=== PATIENT | male | born 1980 | race Caucasian/White ===

== ENCOUNTER 2017-07-27 06:42 | Emergency (ER) | payer OTHER ==
[~2017-07-27] VITALS: Ht 162.6 cm; Wt 56.1 kg
[2017-07-27 06:47] VITALS: TEMP 36.6; Ht 162.6 cm; Wt 56.1 kg
[2017-07-27] MEDS ORDERED: PROPARACAINE HCL 0.5% OP SOLN 15 ML BTL ONE (07:03)
[2017-07-27] MEDS ORDERED: CIPROFLOXACIN HCL 0.3% OP SOLN 2.5 ML BTL OP ONE (07:15)
--- NOTE | 2017-07-27 07:17 | EMERGENCY ROOM VISIT NOTE ---
History Report prepared by Scribe: Maira Waters Under the Supervision of: Dr. Antonio Cotton D.O. First contact with patient: 06:59 Chief Complaint: EYE ASSESSMENT Stated Complaint: SOMETHING IN EYE, WORK RELATED History of Present Illness The patient is a 37 year old male who presents to the Emergency Room with complaints of an episode of something getting in his left eye occurring about 4 hours ago. 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 The patient wears safety glasses at work. He tried flushing his eye with water with no relief. He notes some eye irritation but denies any pain. Source of History: patient Onset: 4 hours ago Position: eye (left) Quality: other (something in eye) Timing: other (episode) Modifying Factors (Relieving): other (none) Review of Systems See HPI for pertinent positives & negatives. A total of 6 systems reviewed and were otherwise negative. Past Medical & Surgical Medical Problems: (1) No Known Active Medical Problems Family History Patient reports no known family medical history. Social History Smoking Status: Never Smoker Marital Status: single Occupation Status: employed Current/Historical Medications No Active Prescriptions or Reported Meds Allergies Coded Allergies: Latex1 -Allergic Contact Dermititis (Unverified Allergy, Unknown, , ) Penicillins (Unverified Allergy, Unknown, , 07/27/17) Physical Exam Vital Signs Date Time Temp Pulse Resp B/P (MAP) Pulse Ox O2 Delivery O2 Flow Rate FiO2 07/27/17 06:47 36.6 89 18 154/105 96 Room Air Physical Exam CONSTITUTIONAL/VITAL SIGNS: Reviewed / noted above. GENERAL: Non-toxic in appearance. INTEGUMENTARY: Warm, dry, and [place]. HEAD: Normocephalic. EYES: without scleral icterus or trauma. There is mild scleral injection. There is a visible foreign body to the front of the cornea anterior to the pupil. It is small but visible to the eye. It does not move with blinking. Eyelids were everted and no foreign body was seen under the lids. ENT/OROPHARYNX: clear and moist. LYMPHADENOPATHY/NECK: Is supple without lymphadenopathy or meningismus. RESPIRATORY: Lungs clear and equal. CARDIOVASCULAR: Regular rate and rhythm. GI/ABDOMEN: Soft and nontender. No organomegaly or pulsatile mass. No rebound or guarding. Normal bowel sounds. EXTREMITIES: Warm and well perfused. BACK: No CVA tenderness. NEUROLOGICAL: Intact without focal deficits. PSYCHIATRIC: normal affect. MUSCULOSKELETAL: Normally developed with good muscle tone. Medical Decision & Procedures Medications Administered Medications (Trade) Dose Ordered Sig/Michael Route Start Time Stop Time Status Last Admin Dose Admin Proparacaine HCl (Alcaine 0.5% Oph Soln) 225 drops STK-MED ONCE .ROUTE 07/27/17 07:03 07/27/17 07:04 DC 07/27/17 07:03 225 DROPS Ciprofloxacin HCl (Ciprofloxacin 0.3% Op Soln) 2 drops NOW ONCE OP 07/27/17 07:15 07/27/17 07:16 DC 07/27/17 07:21 2 DROPS Procedure Slit Lamp Examination Indication:foreign body The left eye was prepped with topical proparacaine. Slit lamp examination was performed in the standard fashion. Cornea appeared clear with a small superficial foreign body just anterior to pupil. Anterior chamber clear. Scleral injection minimal present. No discharge present. Fluorescein examination performed and revealed mild Fluorescein uptake in ant cornea anterior to pupil and iris, heavier Fluorescein uptake at the location where foreign body was removed. Negative Yohan sign. The patient tolerated the procedure well without complication. Ocular foreign body removal: Foreign body removal was performed under slit lamp evaluation. After proparacaine was used to anesthetize the eye topically, a Q- tip was used to remove a small foreign body in that was noted above. There was a small corneal defect in that area after removal. There was a small corneal abrasion noted. The eye was irrigated following foreign body removal. ED Course 0700: Previous medical records were reviewed. The patient was evaluated in room A3. A complete history and physical examination was performed. Medical Decision There is no evidence of globe rupture. There were no foreign bodies under the eyelids. Patient presents with a foreign body to the anterior eye in the cornea related to work. It occurred around 3 AM. Lori to the ED with his employer. The foreign body was removed with a Q-tip after proparacaine topical anesthesia. The patient was discharged on Ciloxan eyedrops. Medication Reconcilliation Current Medication List: was personally reviewed by fl Blood Pressure Screening Patient's blood pressure: Elevated blood pressure Blood pressure disposition: Elevated BP felt to be situational Impression Primary Impression: Corneal foreign body Scribe Attestation The scribe's documentation has been prepared under my direction and personally reviewed by me in its entirety. I confirm that the note above accurately reflects all work, treatment, procedures, and medical decision making performed by me. Departure Information Dispostion Home / Self-Care Prescriptions No Active Prescriptions or Reported Meds Referrals No Doctor, Assigned (PCP) Patient Instructions ED Eye Injury Corneal Abrasion, ED Foreign Body Cornea, My [facility] Additional Instructions Use Ciloxan eyedrops every 4 hours while awake for the next several days or until pain subsides. If discomfort continues, follow-up with an it infrastructure specialist in 3-5 days. Take Tylenol or Motrin for pain.
[2017-07-27 07:25] VITALS: BP 159/106; PULSE 85; O2SAT 100
== END 2017-07-27 07:35 | disposition home or self-care (01) ==
LOC: C.EDB 06:43 → C.EDA 07:35
DX: T15.02XA Foreign body in cornea, left eye, initial encounter (principal); X58.XXXA Exposure to other specified factors, initial encounter; Y92.69 Other specified industrial and construction area as the place of occurrence of the external cause; Y99.0 Civilian activity done for income or pay